=== PATIENT | female | born 1965 | race Caucasian/White ===

== ENCOUNTER → 2017-04-28 08:28 | Outpatient (CLI) | payer OTHER, SELFPAY ==
[2017-04-28 08:41] LABS: Basophils % 0.5 % (0.1-2.0); Eosinophils # 0.1 K/mm3 (0.0-0.4); Eosinophils % 1.8 % (0.1-12.0); Hemoglobin 13.1 g/dL (12.2-16.2); Lymphocytes % 44.1 K/mm3 (10-50); Mean Corpuscular HGB Conc 32.8 g/dL (31.8-35.4); Mean Corpuscular Hemoglobin 29.9 pg (27.0-31.2); Mean Corpuscular Volume 91.1 fl (81-99); Mean Platelet Volume 8.1 fl (7.4-10.4); Monocytes # 0.3 K/mm3 (0.1-1.0); Monocytes % 5.7 % (1.7-9.3); Neutrophils # 2.1 K/mm3 (1.8-7.8); Neutrophils % 47.9 % (37.0-80.0); Platelet Count 228 K/mm3 (142-424); Red Blood Count 4.39 M/mm3 (4.20-5.40); Red Cell Distribution Width 12.7 % (11.5-17.5); White Blood Count 4.4 K/mm3 (4.8-10.8)
[2017-04-28 09:02] LABS: Alanine Aminotransferase 21 U/L (12-78); Albumin Level 3.8 gm/dL (3.4-5.0); Alkaline Phosphatase 70 U/L (46-116); Anion Gap 10.2 mEq/L (5-15); Aspartate Amino Transferase 10 U/L (15-37); Bilirubin,Direct 0.1 mg/dL (0.0-0.2); Bilirubin,Total 0.5 mg/dL (0.2-1.0); Blood Urea Nitrogen 11 mg/dL (7-18); Carbon Dioxide 32 mmol/L (21.0-32.0); Chloride 104 mmol/L (98-107); Chol/HDL Ratio 3.6 (1-3.5); Cholesterol 225 mg/dL (140-200); Creatinine,Serum 0.88 mg/dL (0.55-1.02); Estimated Glomerular Filt Rate 67 ml/min (>60); Free T4 (Free Thyroxine) 0.81 ng/dl (0.76-1.46); GFR (African American) 81 ML/MIN (>60); Glucose 102 mg/dL (74-106); HDL Cholesterol 63 mg/dL (29-89); LDL Cholesterol 133 mg/dL (0-130); Potassium 4.2 mmoL/L (3.5-5.1); Sodium 142 mmol/L (136-145); Thyroid Stimulating Hormone 2.53 uIU/ml (0.358-3.740); Total Protein,Serum 7.3 gm/dL (6.4-8.2); Triglycerides 143 mg/dL (30-200); VLDL Cholesterol 29 mg/dL (0-40)
== END ==
PROVIDERS: Visit Provider Nurse Practitioner Family
DX: I11.9 Hypertensive heart disease without heart failure (principal); E78.5 Hyperlipidemia, unspecified; R00.2 Palpitations; R53.83 Other fatigue
CPT/HCPCS: 36415; 80048; 80061; 80076; 84439; 84443; 85025

== ENCOUNTER → 2017-05-30 14:09 | Outpatient (CLI) | payer OTHER, SELFPAY ==
--- NOTE | 2017-05-30 14:16 | MM_ITS ---
MM Dig screening mamm BI w/CAD CAD Screening COMPARISON: Digital mammograms 06/02/2016 and 02/04/2014 INDICATION: There is a history of breast cancer in patient's half sister diagnosed at age 40 TECHNIQUE: Standard CC and MLO images were obtained. R2 CAD reviewed. FINDINGS: Scattered fibroglandular densities are seen throughout both breasts. There is no new or suspicious lesion in either breast and no suspicious microcalcifications. Several small nodes are seen in each axilla as noted previously. IMPRESSION: Fibrofatty parenchyma with no suspicious lesion seen BI-RADS Category: 1 Negative RECOMMENDED FOLLOW-UP: 1YR - 1 YEAR FOLLOW-UP (A letter has been sent to the patient regarding results of the study.)
== END ==
PROVIDERS: PCP Nurse Practitioner; Visit Provider Obstetrics & Gynecology
DX: Z12.31 Encounter for screening mammogram for malignant neoplasm of breast (principal)
CPT/HCPCS: 77067

== ENCOUNTER → 2017-05-31 15:49 | Outpatient (POV) | payer OTHER, SELFPAY | PROVIDERS: PCP Nurse Practitioner; Visit Provider Dermatology | DX: Z00.00 Encounter for general adult medical examination without abnormal findings (principal) ==

== ENCOUNTER → 2017-10-04 15:06 | Outpatient (CLI) | payer OTHER, SELFPAY ==
--- NOTE | 2017-10-04 15:12 | XR_ITS ---
XR knee LT 3V HISTORY: ITS.REASON: LEFT KNEE PAIN ORDERING PHYSICIAN: Serenity Chino PATIENT AGE: 52 years COMPARISON: None FINDINGS: No fracture or dislocation. No lytic or blastic change. Normal mineralization. No significant arthritic changes evident. No other significant findings IMPRESSION: Negative Knee
== END ==
PROVIDERS: PCP Nurse Practitioner; Visit Provider Nurse Practitioner
DX: M25.562 Pain in left knee (principal)
CPT/HCPCS: 73562

== ENCOUNTER → 2017-11-27 08:00 | Outpatient (CLI) | payer OTHER, SELFPAY ==
--- NOTE | 2017-11-27 08:07 | CA_ITS ---
PROCEDURE: 2-D M-mode and color Doppler study INDICATIONS FOR THE TEST: Chest pain+ COPD Heart Murmur+ Tobacco Smoking Palpitations+ Fatigue Syncope Edema Hypertension+Diabetes Mellitus Rheumatic Fever SOB+[place] Obesity Hyperlipidemia+ Family History HD Additional History Dizziness PATIENT INFORMATION HEIGHT: 63 WEIGHT: 135 GENDER: Female B/P: 94/72 2-D/M-MODE INTERPRETATION: 2-D MEASUREMENTS OBSERVED VALUES IN CMS Right Ventricular Dimension (RVDd) 2.0 Interventricular Septum (Thickness)(IVsd) 0.9 Left Ventricular Internal Dimensions(LVIDd) 4.6 Left Ventricular Posterior Wall (Thickness)(LVPWd) 0.8 Aortic Root 2.4 Aortic Cusp Separation 1.8 Left Atrial Dimensions (LAD) 2.9 2D 1. Left atrium is normal size, left ventricle is normal size, there is no concentric left ventricular hypertrophy, visually estimated ejection fraction of 55% with no regional wall motion abnormality. 2. The right atrium and right ventricle are normal size and contractility. 3. The aortic valve is minimally thickened and fibrosed. 4. The mitral and tricuspid valvular grossly normal. 5. The pulmonic valve is poorly visualized. 6. No significant pericardial effusion. DOPPLER INTERROGATION: Doppler interrogation of the aortic, mitral and tricuspid valvular presence of mild mitral and tricuspid regurgitation, tricuspid regurgitation jet velocity is insufficient for calculation of the right ventricular systolic pressure, diastolic parameters are within normal range. CONCLUSION: 1. Normal left ventricular size, preserved left ventricular systolic function, visually estimated ejection fraction of 55% with no regional wall motion abnormality, diastolic parameters are within normal range. 2. Mild mitral and tricuspid regurgitation 3. No significant pericardial effusion noted.
== END ==
PROVIDERS: PCP Nurse Practitioner; Visit Provider Physician Assistant
DX: R01.1 Cardiac murmur, unspecified (principal); R00.2 Palpitations; R06.00 Dyspnea, unspecified
CPT/HCPCS: 93306

== ENCOUNTER → 2017-11-27 10:56 | Outpatient (POV) | payer OTHER, SELFPAY | PROVIDERS: PCP Nurse Practitioner; Visit Provider Otolaryngology | DX: Z00.00 Encounter for general adult medical examination without abnormal findings (principal) ==

== ENCOUNTER → 2018-03-05 14:20 | Outpatient (CLI) | payer OTHER, SELFPAY ==
--- NOTE | 2018-03-05 14:27 | XR_ITS ---
XR finger RT min 2V CLINICAL INDICATION: Right thumb pain ITS.REASON THUMB INJURY ORDERING PHYSICIAN: Diamante White PATIENT AGE: 53 years Comparison: None FINDINGS: No bony or joint abnormality IMPRESSION: Negative right thumb
== END ==
PROVIDERS: PCP Nurse Practitioner Family; Visit Provider Nurse Practitioner Family
DX: S69.91XA Unspecified injury of right wrist, hand and finger(s), initial encounter (principal)
CPT/HCPCS: 73140

== ENCOUNTER → 2018-06-04 10:10 | Outpatient (CLI) | payer OTHER, SELFPAY ==
--- NOTE | 2018-06-04 10:11 | XR_ITS ---
XR DEXA axial skeleton HISTORY: ITS.REASON: screening ORDERING PHYSICIAN: Terell Scott MD PATIENT AGE: 53 years COMPARISON: None FINDINGS: The BMD measured at the Right femoral neck is 0.768 g/cm squared with a T score of -1.9. This is considered Osteopenic according to the World Health Organization criteria. Fracture risk is Moderate. Treatment is advised. IMPRESSION: Osteopenia with moderate fracture risk. Treatment is advised. Suggest follow-up exam May 2020
--- NOTE | 2018-06-04 10:11 | MM_ITS ---
MM Dig screening mamm BI w/CAD ORDERING PHYSICIAN : Terell cSott MD PATIENT AGE: 53 years GENDER: Female COMPARISON: May 20172016, January. INDICATION: ITS.Routine screening mammogram. No hormones. No new complaints listed Family history. Half sister with breast cancer in her 40s. TECHNIQUE: Standard CC and MLO images were obtained. R2 CAD reviewed. FINDINGS: Lower density breast with minimal residual fibroglandular elements bilaterally. Mild to moderate fatty replacement throughout with Progressive fatty replacement compared back to 2014. No significant new findings today when compared to previous study. No dominant or suspicious mass. No suspicious calcifications. CAD computer review highlights no areas of concern either. . IMPRESSION: ...... Stable bilateral mammogram. No new areas of concern Lower density breast. Routine Bilateral follow-up one year recommended BI-RADS Category: 1 Negative RECOMMENDED FOLLOW-UP: 1YR 1 YEAR FOLLOW-UP (A letter has been sent to the patient regarding results of the study.)
== END ==
PROVIDERS: PCP Nurse Practitioner; Visit Provider Obstetrics & Gynecology
DX: Z78.0 Asymptomatic menopausal state (principal); Z12.31 Encounter for screening mammogram for malignant neoplasm of breast; Z13.820 Encounter for screening for osteoporosis
CPT/HCPCS: 77067; 77080

== ENCOUNTER → 2018-07-09 13:07 | Outpatient (POV) | payer OTHER, SELFPAY | PROVIDERS: Visit Provider Dermatology | DX: Z00.00 Encounter for general adult medical examination without abnormal findings (principal) ==

== ENCOUNTER → 2018-08-20 10:22 | Outpatient (POV) | payer OTHER, SELFPAY | PROVIDERS: Visit Provider Dermatology | DX: Z00.00 Encounter for general adult medical examination without abnormal findings (principal) ==

== ENCOUNTER → 2018-10-08 10:02 | Outpatient (CLI) | payer OTHER, SELFPAY ==
--- NOTE | 2018-10-08 10:08 | XR_ITS ---
PROCEDURE: XR CERVICAL SPINE 5V CLINICAL INDICATION: NECK PAIN COMPARISON: No exams were available for comparison FINDINGS: Normal alignment. Straightening of cervical lordosis. There is degenerate disc disease from C3 to C6 most severe at C5-C6. No fracture or dislocation. No lytic or blastic change. No significant foraminal narrowing.. Nuchal ligament calcification noted posterior to C5. IMPRESSION: Cervical spondylosis with degenerative disc disease and straightening of cervical lordosis Dictated by: Francesco Donis MD 10/09/2018 06:06 Signed by: <Electronically signed by Francesco Donis MD in [place]> 10/09/2018 06:06
== END ==
PROVIDERS: PCP Family Medicine; Visit Provider Family Medicine
DX: M54.2 Cervicalgia (principal)
CPT/HCPCS: 72050

== ENCOUNTER → 2018-11-19 14:13 | Outpatient (POV) | payer OTHER, SELFPAY | PROVIDERS: Visit Provider Dermatology | DX: Z00.00 Encounter for general adult medical examination without abnormal findings (principal) ==

== ENCOUNTER → 2018-12-10 10:22 | Outpatient (CLI) | payer OTHER, SELFPAY ==
--- NOTE | 2018-12-10 17:21 | XR_ITS ---
PROCEDURE: XR LUMBAR SPINE MIN 4V CLINICAL INDICATION: PAIN COMPARISON: No exams were available for comparison FINDINGS: No fracture or dislocation. There is minimal endplate spurring at L3 and L4. The disc spaces are well preserved. No lytic or blastic change. SI joints are unremarkable. Nonspecific pelvic calcifications are noted. IMPRESSION: Mild degenerative change, no acute finding There is a 3 mm calcific density inferior to the right SI joint which could be vascular. A ureteral stone could have a similar appearance. CT may be of further value if clinically warranted Dictated by: Francesco Donis MD 12/10/2018 18:02 Electronically signed by Francesco Donis MD in [place] 12/10/2018 18:02
--- NOTE | 2018-12-10 17:21 | XR_ITS ---
PROCEDURE: XR HIP RT 2-3V W/PELVIS CLINICAL INDICATION: PAIN COMPARISON: BONE3 BONE DENSITOMETRY(HIP:LT SPINE from 06/02/2016 FINDINGS: No fracture or dislocation is evident. No significant degenerative change. No lytic or blastic change. Unremarkable soft tissues. 3 mm calcific density inferior to the right SI joint which could be vascular or due to ureteral stone. IMPRESSION: 1. Negative right hip. 2. Possible right ureteral stone versus vascular calcification Dictated by: Francesco Donis MD 12/10/2018 18:03 Electronically signed by Francesco Donis MD in [place] 12/10/2018 18:03
== END ==
PROVIDERS: PCP Nurse Practitioner Family; Visit Provider Nurse Practitioner Family
DX: M54.41 Lumbago with sciatica, right side (principal); M25.551 Pain in right hip
CPT/HCPCS: 72110; 73502

== ENCOUNTER → 2019-03-04 15:48 | Outpatient (POV) | payer OTHER, SELFPAY | PROVIDERS: Visit Provider Dermatology | DX: Z00.00 Encounter for general adult medical examination without abnormal findings (principal) ==

== ENCOUNTER → 2019-08-22 09:00 | Outpatient (CLI) | payer OTHER, SELFPAY ==
--- NOTE | 2019-08-22 09:00 | MM_ITS ---
PROCEDURE: MM DIG SCREENING MAMM BI W/CAD DIGITAL BREAST TOMOSYNTHESIS INCLUDED Patient Age:54Y CLINICAL INDICATION: Routine Screening Mammogram 54-year-old no hormones no new complaints. Family history. Half sister with breast cancer COMPARISON: [facility] DIG MAMM-SCREEN PHILIP from 09/17/2013 [facility] DIG MAMM-DX PHILIP from 02/04/2014 [facility] DIG MAMM-SCREEN PHILIP W/CAD from 06/02/2016 [facility] MM Dig screening mamm BI w/CAD from 05/30/2017 [facility] MM Dig screening mamm BI w/CAD from 06/04/2018 TECHNIQUE: Standard CC and MLO images were obtained. R2 CAD reviewed. Bilateral digital breast tomosynthesis included. FINDINGS: [id number] residual fibroglandular elements with no new areas of significant concern. But no suspicious calcifications either breast but no new dominant or suspicious mass either breast. CAD highlights no areas of concern either nor does tomosynthesis evaluation . Right breast: No new areas of significant concern. Areas of very minor asymmetric density on the MLO view are seen in 2013 and dissipate on the tomosynthesis view. Left breast:. Unremarkable no new findings of concern. Follow-up bilateral mammogram 1 year recommended Bilateral follow-up 1 year recommended IMPRESSION: Stable bilateral mammogram No new areas of concern either breast Bilateral follow-up 1 year recommended BI-RAD Category: 1 Negative FOLLOW-UP: 1YR 1 Year Follow-up (A letter has been sent to the patient regarding results of the study.) Dictated by: Everardo Lord MD 08/26/2019 14:03 Electronically signed by Everardo Lord MD in [place] 08/26/2019 14:03
== END ==
PROVIDERS: PCP Nurse Practitioner; Visit Provider Obstetrics & Gynecology
DX: Z12.31 Encounter for screening mammogram for malignant neoplasm of breast (principal)
CPT/HCPCS: 77063; 77067

== ENCOUNTER → 2019-09-05 10:08 | Outpatient (CLI) | payer OTHER, SELFPAY ==
[2019-09-05 10:29] LABS: Basophils % 0.5 % (0.1-2.0); Hematocrit 40.8 % (37.0-47.0); Hemoglobin 14.2 g/dL (12.2-16.2); Lymphocytes % 45.6 % (10-50); Mean Corpuscular HGB Conc 34.8 g/dL (31.8-35.4); Mean Corpuscular Hemoglobin 30.9 pg (27.0-31.2); Mean Corpuscular Volume 88.8 fl (81-99); Mean Platelet Volume 8.3 fl (7.4-10.4); Monocytes # 0.2 K/mm3 (0.1-1.0); Monocytes % 4.3 % (1.7-9.3); Neutrophils # 2.1 K/mm3 (1.8-7.8); Neutrophils % 48.6 % (37.0-80.0); Platelet Count 210 K/mm3 (142-424); Red Cell Distribution Width 13.2 % (11.5-17.5); White Blood Count 4.4 K/mm3 (4.8-10.8)
[2019-09-05 11:35] LABS: Alanine Aminotransferase 13 U/L (12-78); Albumin Level 4.5 g/dl (3.5-5.0); Albumin/Globulin Ratio 1.6 (1.1-1.8); Alkaline Phosphatase 87 U/L (38-126); Anion Gap 12.1 mEq/L (5-15); Aspartate Amino Transferase 26 U/L (14-36); Bilirubin,Total 0.5 mg/dl (0.2-1.3); Blood Urea Nitrogen 11 mg/dl (7-17); Calcium 9.8 mg/dl (8.4-10.2); Carbon Dioxide 29 mmol/L (22.0-30.0); Chloride 100 mmol/L (98-107); Estimated Glomerular Filt Rate 87 ml/min (>60); GFR (African American) 105 ML/MIN (>60); Globulin 2.8 g/dL (1.3-3.2); Glucose 96 mg/dl (74-100); Potassium 4.1 mmoL/L (3.5-5.1); Sodium 137 mmol/L (136-145); Total Protein,Serum 7.3 g/dl (6.3-8.2)
[2019-09-05 12:06] LABS: Thyroid Stimulating Hormone 2.66 uIU/mL (0.465-4.68)
== END ==
PROVIDERS: Visit Provider Obstetrics & Gynecology
DX: Z01.419 Encounter for gynecological examination (general) (routine) without abnormal findings (principal)
CPT/HCPCS: 36415; 80053; 84443; 85025

== ENCOUNTER → 2019-09-09 16:31 | Outpatient (POV) | payer OTHER, SELFPAY | PROVIDERS: PCP Nurse Practitioner; Visit Provider Dermatology | DX: Z00.00 Encounter for general adult medical examination without abnormal findings (principal) ==

== ENCOUNTER → 2019-12-03 11:43 | Outpatient (CLI) | payer OTHER, SELFPAY ==
[2019-12-03 12:59] LABS: Coronavirus 19 IgG Antibody Negative (Negative); Coronavirus 19 IgM Antibody Negative (Negative)
== END ==
PROVIDERS: Visit Provider Family Medicine
DX: Z03.818 Encounter for observation for suspected exposure to other biological agents ruled out (principal)
CPT/HCPCS: 36415; 86328

== ENCOUNTER → 2020-04-27 16:10 | Outpatient (POV) | payer OTHER, SELFPAY | PROVIDERS: Visit Provider Dermatology | DX: Z00.00 Encounter for general adult medical examination without abnormal findings (principal) ==

== ENCOUNTER → 2020-04-30 16:23 | Outpatient (CLI) | payer OTHER, SELFPAY ==
--- NOTE | 2020-04-30 16:41 | XR_ITS ---
PROCEDURE: XR CHEST 2V CLINICAL HISTORY: COUGH COMPARISON: CR CXR1 CHEST-PORTABLE from 11/16/2012 CT CTAC CTA-CHEST from 05/11/2015 FINDINGS: The cardiomediastinal silhouette and pulmonary vascularity are within normal limits. The lungs are clear without infiltrates, suspicious nodules, or pleural effusions. No acute bony abnormalities. IMPRESSION: No acute findings. Dictated by: Francesco Donis MD 05/01/2020 05:48 Francesco Donis MD in [place] 05/01/2020 05:48
[2020-04-30 16:49] LABS: Basophils % 0.6 % (0.1-2.0); Eosinophils # 0.1 K/mm3 (0.0-0.4); Eosinophils % 1.7 % (0.1-12.0); Hematocrit 40.2 % (37.0-47.0); Hemoglobin 13.4 g/dL (12.2-16.2); Lymphocytes # 2.4 K/mm3 (0.7-4.5); Lymphocytes % 48.1 % (10-50); Mean Corpuscular HGB Conc 33.3 g/dL (31.8-35.4); Mean Corpuscular Hemoglobin 29.8 pg (27.0-31.2); Mean Corpuscular Volume 89.4 fl (81-99); Mean Platelet Volume 8.1 fl (7.4-10.4); Monocytes # 0.3 K/mm3 (0.1-1.0); Monocytes % 5.4 % (1.7-9.3); Neutrophils # 2.2 K/mm3 (1.8-7.8); Neutrophils % 44.2 % (37.0-80.0); Platelet Count 224 K/mm3 (142-424); Red Cell Distribution Width 13.6 % (11.5-17.5); White Blood Count 4.9 K/mm3 (4.8-10.8)
[2020-04-30 17:33] LABS: Alanine Aminotransferase 16 U/L (12-78); Albumin Level 4.6 g/dl (3.5-5.0); Albumin/Globulin Ratio 1.6 (1.1-1.8); Alkaline Phosphatase 71 U/L (38-126); Anion Gap 9.3 mEq/L (5-15); Aspartate Amino Transferase 25 U/L (14-36); Bilirubin,Total 0.3 mg/dl (0.2-1.3); Blood Urea Nitrogen 13 mg/dl (7-17); Calcium 10.2 mg/dl (8.4-10.2); Carbon Dioxide 31 mmol/L (22.0-30.0); Chloride 103 mmol/L (98-107); Chol/HDL Ratio 4.5 (1-3.5); Cholesterol 260 mg/dl (140-200); Estimated Glomerular Filt Rate 86 ml/min (>60); GFR (African American) 104 ML/MIN (>60); Globulin 2.9 g/dL (1.3-3.2); Glucose 111 mg/dl (74-100); HDL Cholesterol 58 mg/dl (40-60); Potassium 4.3 mmoL/L (3.5-5.1); Sodium 139 mmol/L (136-145); Total Protein,Serum 7.5 g/dl (6.3-8.2); Triglycerides 275 mg/dl (30-150); VLDL Cholesterol 55 mg/dL (0-40)
[2020-04-30 17:44] LABS: Direct LDL Cholesterol 135.93 mg/dL (100-129)
[2020-04-30 18:04] LABS: Thyroid Stimulating Hormone 2.89 uIU/mL (0.465-4.68)
== END ==
PROVIDERS: PCP Nurse Practitioner Family; Visit Provider Nurse Practitioner Family
DX: R00.2 Palpitations (principal); R05 Cough; K92.1 Melena
CPT/HCPCS: 36415; 71046; 80053; 80061; 84443; 85025

== ENCOUNTER → 2020-06-29 08:02 | Outpatient (CLI) | payer OTHER, SELFPAY ==
--- NOTE | 2020-06-29 08:27 | US_ITS ---
PROCEDURE: US ABDOMEN LIMITED CLINICAL INDICATION: RUQ PAIN COMPARISON: No exams were available for comparison FINDINGS: PANCREAS: Unremarkable. No obvious mass or abnormal fluid collection. No ductal dilatation LIVER: No focal liver lesions demonstrated. Homogeneous echogenicity. No intrahepatic biliary ductal dilatation evident. There is appropriate direction of blood flow within a non dilated portal vein RIGHT KIDNEY: Unremarkable. Normal size and echogenicity. No hydronephrosis GALLBLADDER: No gallstones, gallbladder wall thickening, pericholecystic fluid, or biliary dilatation. IMPRESSION: Unremarkable limited abdominal ultrasound as detailed above disc Dictated by: Francesco Donis MD 06/29/2020 16:18 Francesco Donis MD in [place] 06/29/2020 16:18
[2020-06-29 09:16] LABS: Basophils % 0.6 % (0.1-2.0); Eosinophils # 0.1 K/mm3 (0.0-0.4); Eosinophils % 1.3 % (0.1-12.0); Hematocrit 38.8 % (37.0-47.0); Hemoglobin 12.9 g/dL (12.2-16.2); Lymphocytes # 1.9 K/mm3 (0.7-4.5); Lymphocytes % 47.6 % (10-50); Mean Corpuscular HGB Conc 33.2 g/dL (31.8-35.4); Mean Corpuscular Hemoglobin 29.9 pg (27.0-31.2); Mean Platelet Volume 8.2 fl (7.4-10.4); Monocytes # 0.2 K/mm3 (0.1-1.0); Monocytes % 5.2 % (1.7-9.3); Neutrophils # 1.8 K/mm3 (1.8-7.8); Neutrophils % 45.3 % (37.0-80.0); Platelet Count 217 K/mm3 (142-424); Red Blood Count 4.31 M/mm3 (4.20-5.40); White Blood Count 4.1 K/mm3 (4.8-10.8)
[2020-06-29 09:44] LABS: Chloride 105 mmol/L (98-107); Sodium 141 mmol/L (136-145)
[2020-06-29 09:46] LABS: Alanine Aminotransferase 16 U/L (12-78); Aspartate Amino Transferase 25 U/L (14-36); Blood Urea Nitrogen 8 mg/dl (7-17); Estimated Glomerular Filt Rate 103 ml/min (>60); GFR (African American) 125 ML/MIN (>60)
[2020-06-29 09:47] LABS: Albumin Level 4.3 g/dl (3.5-5.0); Albumin/Globulin Ratio 1.7 (1.1-1.8); Alkaline Phosphatase 67 U/L (38-126); Bilirubin,Total 0.4 mg/dl (0.2-1.3); Calcium 9.6 mg/dl (8.4-10.2); Carbon Dioxide 29 mmol/L (22.0-30.0); Globulin 2.6 g/dL (1.3-3.2); Glucose 101 mg/dl (74-100); Total Protein,Serum 6.9 g/dl (6.3-8.2)
[2020-06-29 10:20] LABS: Ferritin 111 ng/ml (11.1-264)
== END ==
PROVIDERS: PCP Nurse Practitioner Family; Visit Provider Nurse Practitioner Family
DX: R10.11 Right upper quadrant pain (principal); K92.1 Melena
CPT/HCPCS: 36415; 76705; 80053; 82728; 85025

== ENCOUNTER → 2020-08-07 10:35 | Outpatient (CLI) | payer OTHER, SELFPAY | PROVIDERS: Visit Provider Internal Medicine Gastroenterology | DX: Z01.812 Encounter for preprocedural laboratory examination (principal); Z11.52 Encounter for screening for COVID-19 | CPT/HCPCS: U0003 ==

== ENCOUNTER 2020-08-09 09:55 | Day surgery (SDC) | payer OTHER, SELFPAY ==
[2020-08-03 12:47] VITALS: BMI 23.1
[2020-08-09 10:42] VITALS: BP 131/73; PULSE 83; RESP 18; TEMP 36.9; O2SAT 100
--- NOTE | 2020-08-09 11:36 | P.PN_ITS ---
[facility] Anesthesia Checklist - Patient Identification Patient Identification: Arm Band - Structural Data Admitted From: Home Planned Operative Procedure/s: colonoscopy Consent for Planned Operative Procedure(s) Verified: Yes Verified Documents: Surgical Consent, History and Physical - NPO Status Verified Time NPO: 00:00 - Additional verifications Anesthesia Reactions: No - Airway Assessment C-Spine Mobility Assessed: Yes (mp2) TMJ Mobility Assessed: Yes Dentition: Good Dentition - Neurological Assessment Level of Consciousness: Awake, Alert - Anesthesia Plan Anesthesia Risk discussed: Yes Anesthesia Plan: Verified ASA Class: II Anesthesia Type: MAC [facility] History I have reviewed the patient's past medical history: Yes Medical History: Reports:: Cancer (basal cell), Heart Murmur, Hyperlipidemia, Palpitations, Pulmonary Embolism Denies:: Diabetes Mellitus Type 1, Diabetes Mellitus Type 2, Internal Pacemaker, MRSA, Seizures *Have you ever received a pneumonia vaccine?: No *Have you received a flu vaccine this season?: Yes Anesthesia experience/problems:: nac Other Surgeries: Yes: , Other. No: Pacemaker Amputation: No Fractures: No - *Social History Last grade of school completed: GED Smoking Status: Never smoker Alcohol Intake: never Alcohol Intake Frequency:: other Substance Use Type: denies use *Occupational Status:: employed Housing: house *Travel in the last 8 weeks: None Family Hx:: Cancer, Diabetes, Heart Attack [employer] history: No [employer] history
--- NOTE | 2020-08-09 11:47 | HMH.PROC ---
[facility] Procedure Note Procedure Note:: Upper Endoscopy Procedure Report: Esophagogastroduodenoscopy with cold biopsies and TTS balloon dilation Endoscopost: Seth Bobby II, MD Referring Physician: JAN Crespo Date of Procedure: August 09, 2020 Equipment: Olympus GIF 190 standard upper endoscope Sedation: MAC sedation Indications: Mrs. Rivers is a 55-year-old female who is here for diagnostic upper endoscopy and colonoscopy. She does have some chronic intermittent heartburn. She takes omeprazole when necessary. She reports no reflux. The patient has had some dysphagia and globus sensation. She reports some postprandial bloating and intermittent belching. She has some intermittent dyspepsia. She also formerly had constipation but now is more regular. She has had frequent rectal bleeding from the end of March 2020 to the end of May 2020. Now this is intermittent. Procedure: Prior to the procedure, a history and physical exam was performed, and patient's medications and allergies were reviewed. The risks, benefits and alternatives of the sedation and procedure were discussed with the patient. All questions were answered and informed consent was obtained. The patient was brought to the procedure room. Patient identification and proposed procedure were verified by the physician and the nurse. The patient was placed in a left lateral decubitus position and the scope was passed under direct vision. Throughout the procedure, the patient's blood pressure, pulse, and oxygen saturations were monitored continuously. The upper GI endoscopy was accomplished without difficulty. The patient tolerated the procedure well. Findings: The scope was passed directly into the upper esophagus and advanced to the third portion of the duodenum. The post bulbar duodenum and duodenal bulb were normal with normal mucosa and conniventes. The scope was withdrawn through a normal duodenal bulb and pylorus into the stomach. There was some bile reflux with mild linear reactive gastropathy of the antrum. The remainder of the body and fundus of the stomach were grossly normal. Upon retroflexion there was no hiatal hernia. 2 biopsies were taken in the antrum and along the lesser curvature for histology to rule out gastritis and/or H pylori. The scope was then withdrawn into the esophagus. There was a serrated Z-line. There was no evidence of reflux esophagitis, Carrillo's or Schatzki's ring. Biopsies were taken from the GE junction. There were tertiary contractions and evidence of mild esophageal dysmotility. The entire esophagus was dilated to 60 Lebanese/20 mm with a TTS hydrostatic balloon. There was some mild spasm or increased resting tone of the cricopharyngeus. The remainder of the esophageal mucosa was normal. Impression: 1. 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 Nonerosive GERD with mild esophageal dysmotility 3. Mild linear reactive gastropathy with bile reflux Plan: I will follow-up the biopsies. The patient does have some functional dyspepsia and functional GERD with esophageal dysmotility. We will discuss additional dietary measures and treatment options. I will proceed with diagnostic colonoscopy.
--- NOTE | 2020-08-09 12:07 | P.PCN_ITS ---
[facility] Procedure Note Procedure Note:: Colonoscopy Procedure Report: Colonoscopy with monopolar ablation/coagulation of internal hemorrhoids Endoscopist: Seth Bobby II, MD Referring physician: JAN Crespo Date of Procedure: August 09, 2020 Equipment: Olympus 190 variable stiffness pediatric colonoscope Sedation: MAC sedation Indication: Mrs. Rivers is a 55-year-old female who is here for diagnostic colonoscopy secondary to frequent rectal bleeding. She had this daily from the end of March 2020 to the end of May 2020 and this primarily only occurred with or after her bowel movements. Now, she does get the bleeding off and on but less frequently. The patient does report some postprandial bloating. She does state that she formerly had constipation but now is regular. She had a colonoscopy in 2011 that was normal. Her last Cologuard in the last 1 to 2 years was normal. The patient reports no weight loss or family history of colon cancer. She did have a thrombosed external hemorrhoid in the . Procedure: Prior to the procedure, a history and physical exam was performed, and patient's medications and allergies were reviewed. The risks, benefits and alternatives of the sedation and procedure were discussed with the patient. All questions were answered and informed consent was obtained. The patient was brought to the procedure room. Patient identification and proposed procedure were verified by the physician and the nurse. The patient was placed in a left lateral decubitus position and the scope was passed under direct vision. Throughout the procedure, the patient's blood pressure, pulse, and oxygen saturations were monitored continuously. The colonoscopy was accomplished without difficulty. The patient tolerated the procedure well. Findings: On digital rectal examination there was normal rectal tone. There were no external hemorrhoids. There was an anterior tag with healed fissure. The colonoscope was introduced through the anal canal to the rectum and advanced to the cecum. The ileocecal valve and appendiceal orifice were identified. The scope was advanced a short distance into the ileum which appeared grossly normal. The scope was then withdrawn into the colon. The cecum, ascending and transverse colon and mucosa were grossly normal. There were mildly scattered diverticuli throughout the descending and sigmoid colon (LEFT colon). The rectum itself was normal. Upon retroflexion within the rectum there were grade 1 internal hemorrhoids. These hemorrhoids were ablated (3 columns) using monopolar ablation/coagulation to destruction. The preparation was excellent throughout with [place] Preparation Score of 9. The cecal time was 12 minutes. Impression: 1. Mild left-sided diverticulosis 2. Grade 1 internal hemorrhoids status post monopolar ablation/coagulation Plan: I would encourage bulk fiber supplementation on a long-term daily maintenance basis. The patient will not require surveillance colonoscopy again for 10 years by ACS guidelines.
[2020-08-09 12:08] VITALS: BP 108/69; PULSE 75; RESP 12; TEMP 36.4; O2SAT 99
[2020-08-09 12:18] VITALS: BP 108/69; PULSE 82; RESP 16; O2SAT 100
[2020-08-09 12:28] VITALS: BP 116/67; PULSE 76; RESP 16; O2SAT 100
[2020-08-09 12:38] VITALS: BP 120/77; PULSE 68; RESP 16; TEMP 36.4; O2SAT 100
== END 2020-08-09 12:42 | disposition home or self-care (01) ==
LOC: OUTP 09:57
PROVIDERS: PCP Nurse Practitioner Family; Visit Provider Internal Medicine Gastroenterology
PROC: 0DJ08ZZ Inspection of Upper Intestinal Tract, Via Natural or Artificial Opening Endoscopic (ICD-10-PCS; CPT 43235; principal; 2020-08-09 11:00)
DX: K57.30 Diverticulosis of large intestine without perforation or abscess without bleeding (principal); K64.0 First degree hemorrhoids; R01.1 Cardiac murmur, unspecified; R00.2 Palpitations; Z85.828 Personal history of other malignant neoplasm of skin; Z86.711 Personal history of pulmonary embolism; Z80.9 Family history of malignant neoplasm, unspecified; Z83.3 Family history of diabetes mellitus; Z82.3 Family history of stroke; Z88.0 Allergy status to penicillin; Z88.2 Allergy status to sulfonamides
CPT/HCPCS: 45378; 46930

== ENCOUNTER → 2020-11-02 16:03 | Outpatient (POV) | payer OTHER, SELFPAY | PROVIDERS: Visit Provider Dermatology | DX: Z00.00 Encounter for general adult medical examination without abnormal findings (principal) ==

== ENCOUNTER → 2020-11-17 13:26 | Outpatient (CLI) | payer OTHER, SELFPAY ==
--- NOTE | 2020-11-17 13:26 | MM_ITS ---
PROCEDURE: MM DIG SCREENING MAMM BI W/CAD Digital Breast Tomosynthesis Included CLINICAL INDICATION: Screening mammogram There is a history of breast cancer in the patient's half sister. COMPARISON: [facility] MM Dig screening mamm BI w/CAD from 05/30/2017 MG [facility] MM Dig screening mamm BI w/CAD from 06/04/2018 MG MM DIG SCREENING MAMM BI W/CAD from 08/22/2019 TECHNIQUE: Standard CC and MLO images and 3D Tomosynthesis was obtained. R2 CAD reviewed. FINDINGS: Mild scattered fibroglandular densities are seen throughout both breast on a background primarily fatty breast parenchyma. There are no CAD markings. There is no new or suspicious lesion in either breast and no suspicious microcalcifications. IMPRESSION: Fibrofatty parenchyma with no suspicious lesions seen BI-RAD Category: 1 Negative FOLLOW-UP: 1YR 1 Year Follow-up (A letter has been sent to the patient regarding results of the study.) Dictated by: Dr. Johnson Goncalves MD 12/02/2020 12:44 Dr. Johnson Goncalves MD in [place] 12/02/2020 12:44
--- NOTE | 2020-11-17 14:51 | XR_ITS ---
PROCEDURE: XR LUMBAR SPINE MIN 4V CLINICAL INDICATION: LOW BACK PAIN COMPARISON: CR XR LUMBAR SPINE MIN 4V from 12/10/2018 FINDINGS: No fracture or dislocation. No lytic or blastic change. There is normal mineralization. Minimal lumbar curvature convex left. No fracture or dislocation. No lytic or blastic change. Other findings:None. IMPRESSION: Minimal leftward lumbar curvature otherwise negative Dictated by: Francesco Donis MD 11/17/2020 16:08 Francesco Donis MD in [place] 11/17/2020 16:08
== END ==
PROVIDERS: PCP Nurse Practitioner Family; Visit Provider Obstetrics & Gynecology
DX: Z12.31 Encounter for screening mammogram for malignant neoplasm of breast (principal); M54.5 Low back pain
CPT/HCPCS: 72110; 77063; 77067

== ENCOUNTER 2020-11-24 12:46 | Outpatient (RCR) | payer OTHER, SELFPAY ==
--- NOTE | 2020-11-24 13:51 | HMH.PTOPEV ---
PT Outpatient Evaluation Rehab PT Outpatient Evaluation Start: 11/24/20 13:38 Freq: Status: Active Protocol: Document 11/24/20 13:38 NEEL (Rec: 11/24/20 13:51 NEEL [id number]) Electronically Signed By Macario Yao, PT 11/24/20 13:38 Outpatient Therapy Subjective History Subjective History Pt reports acute onset LBP beginning upon waking on . Pt reports no injury or change in activity leading up to this event. Pt reports R>L sided LBP with radicular s/s into right hip,groin, thigh areas. Pt reports recent lumbar xray revealed ' arthritis'. 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 Chief Complaint Pain,Stiff,Paresthesia, Weakness Symptom Type Ache,Sharp,Dull,Stabbing, Burning Symptoms Relieved By Rest/Positioning,Heat,OTC Meds ,Prescription Meds Symptoms Aggravated By Bending/Stooping,Physical Activity,Twisting,Lifting Prior Functional Limitations None Current Functional Limitations Lifting,Housework,Sleeping, Bending/Stooping Symptom Description Constant but Variable Level of pain today (0-10) 4 Pain scale - at its best (0-10) 3 Pain scale - at its worst (0-10) 7 Lumbopelvic Eval Posture Thoracic Spine Posture Standing Position Neutral Lumbar Spine Posture Standing Position Neutral Assistive device Assistive Devices None / NA Gait Observation General Gait Pattern Observation Antalgic Gait Palapation tenderness left lumbar spinal tenderness Yes: 2/4 paraspinal tenderness Yes: 2/4 buttock tenderness Yes: 2/4 Lumbar/Sacral Palpation Findings Tenderness,Trigger Point, Muscle Guarding right lumbar spinal tenderness Yes: 3/4 paraspinal tenderness Yes: 3/4 buttock tenderness Yes: 3/4 Lumbar/Sacral Palpation Findings Tenderness,Trigger Point, Muscle Guarding Accessory Movement L-spine Vertebrae Accessory Movements [employer] [place] that Elicit Symptoms L2 bilateral L3 bilateral L4 bilateral L5 bilateral S1 bilateral Range of Motion Lumbar Spine Active Flexion Range of 0-50 Motion (degrees)
== END 2020-11-24 12:50 | disposition home or self-care (01) ==
LOC: PT 12:46
PROVIDERS: PCP Nurse Practitioner Family; Visit Provider Internal Medicine Adolescent Medicine
DX: M54.5 Low back pain (principal)
CPT/HCPCS: 97163

== ENCOUNTER → 2020-11-24 13:45 | Outpatient (CLI) | payer OTHER, SELFPAY | PROVIDERS: PCP Nurse Practitioner Family; Visit Provider Nurse Practitioner Family | DX: R51.9 Headache, unspecified (principal); R53.83 Other fatigue; G47.33 Obstructive sleep apnea (adult) (pediatric) | CPT/HCPCS: 95806 ==

== ENCOUNTER → 2021-05-10 13:02 | Outpatient (POV) | payer OTHER, SELFPAY | PROVIDERS: Visit Provider Dermatology | DX: Z00.00 Encounter for general adult medical examination without abnormal findings (principal) ==

== ENCOUNTER → 2021-07-26 15:00 | Outpatient (POV) | payer OTHER, SELFPAY | PROVIDERS: Visit Provider Dermatology | DX: Z00.00 Encounter for general adult medical examination without abnormal findings (principal) ==

== ENCOUNTER → 2021-09-27 12:57 | Outpatient (CLI) | payer OTHER, SELFPAY ==
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
== END ==
PROVIDERS: PCP Nurse Practitioner Family; Visit Provider Nurse Practitioner Family
DX: M54.2 Cervicalgia (principal); R20.2 Paresthesia of skin; V89.2XXA Person injured in unspecified motor-vehicle accident, traffic, initial encounter
CPT/HCPCS: 72141; 76376

== ENCOUNTER → 2021-11-22 11:04 | Outpatient (CLI) | payer OTHER, SELFPAY ==
--- NOTE | 2021-11-22 11:10 | MM_ITS ---
PROCEDURE INFORMATION: Exam: MG Bilateral Screening 3D Mammography Exam date and time: 11/22/2021 11:01 AM Age: 56 years old Clinical indication: Screening. Have sister and maternal cousin had breast cancer. TECHNIQUE: Imaging protocol: Bilateral Screening tomosynthesis and 2D mammography including computer-aided detection (CAD) when performed. COMPARISON: 1. MG MM DIG SCREENING MAMM BI W/CAD 11/17/2020 1:31 PM 2. MG MM DIG SCREENING MAMM BI W/CAD 08/22/2019 9:06 AM 3. MG [facility] MM Dig screening mamm BI w/CAD 06/04/2018 10:53 AM 4. MG [facility] MM Dig screening mamm BI w/CAD 05/30/2017 2:21 PM FINDINGS: MAMMOGRAPHY: Breast composition: The breasts are almost entirely fatty. Mass: None. Architectural distortion: None. Calcifications: No suspicious calcifications. Asymmetric density: None. Skin thickening: None. Axillary adenopathy: None. IMPRESSION: No mammographic evidence of malignancy. Annual screening is recommended unless otherwise clinically indicated. ASSESSMENT: BI-RADS Category 1: Negative
== END ==
PROVIDERS: PCP Nurse Practitioner Family; Visit Provider Obstetrics & Gynecology
DX: Z12.31 Encounter for screening mammogram for malignant neoplasm of breast (principal)
CPT/HCPCS: 77063; 77067

== ENCOUNTER → 2021-11-22 13:41 | Outpatient (POV) | payer OTHER, SELFPAY | PROVIDERS: Visit Provider Dermatology | DX: Z00.00 Encounter for general adult medical examination without abnormal findings (principal) ==

== ENCOUNTER → 2022-06-20 08:52 | Outpatient (POV) | payer OTHER, SELFPAY | PROVIDERS: Visit Provider Dermatology | DX: Z00.00 Encounter for general adult medical examination without abnormal findings (principal) ==

== ENCOUNTER 2022-10-12 11:00 | Outpatient (RCR) | payer OTHER, SELFPAY ==
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
--- NOTE | 2022-07-13 09:07 | HMH.RHREAS ---
Rehab Reassessment Rehab OP Re-assessment Start: 07/13/22 07:51 Freq: Status: Active Protocol: Document 07/13/22 07:51 NEEL (Rec: 07/13/22 09:07 NEEL [id number]) E-signed By Macario Yao, PT Rehab Re-assessment Subjective Subjective Pt reports 3-4/10 neck pain on VAS over the last couple weeks on average, and feels 60 % better overall since I eval Objective Objective Notes CROM: FLX 0-45, EXT 0-25, B/L SB 0-30, B/L ROT 0-60 MMT: B/L SH FLX AND ABD 4/5, B /L FINGER ABD 4/5, B/L ELBOW FLX,EXT 4+/5 TTP: B/L UT MM 2-3/4, B/L CERVICAL PARASPINALS 2-3/4, B/ L SUBOCCIPITAL 2/4 Assessment Progress Assessment Progressing as Expected Assessment Notes IMPROVED CROM AND STRENGTH Patient goals met STG'S 09/02 LTG'S 06/04 Goals Not Met STG'S 03/05, LTG'S 07/04 Plan Plan Pt to continue w/skilled P.T. to make further improvements in ROM, strength, and TTP to allow for optimal function Frequency of Therapy 1-2x/wk Duration of therapy 3-5wks Time and Billing Re-Eval Time 11 Re-Eval Billing Units 1 PHYSICIAN CERTIFICATION: I certify the specified therapy services for Susan Rivers are required, authorized, and reviewed every 30 days.
--- NOTE | 2022-08-15 11:31 | HMH.RHREAS ---
Rehab Reassessment Rehab OP Re-assessment Start: 07/13/22 07:51 Freq: Status: Active Protocol: Document 08/15/22 11:26 NEEL (Rec: 08/15/22 11:31 NEEL [id number]) E-signed By Macario Yao, PT Rehab Re-assessment Subjective Subjective Pt reports increased neck pain and referred pain in left UE and cervico-suboccipital area as well. 'I'm just really feeling like it's back to where it was, and I'm afraid it's something I'm gonna have to live with.' Pt reports 5/10 neck pain this am on VAS Objective Objective Notes CROM: FLX 0-40, EXT 0-10, B/L SB 0-30, B/L ROT 0-45 MMT: B/L SH FLX AND ABD 4/5, B /L FINGER ABD 4/5, B/L ELBOW FLX,EXT 4+/5 TTP: B/L UT MM 3-4/4, B/L CERVICAL PARASPINALS 3-4/4, B/ L SUBOCCIPITAL 3-4/4 Assessment Progress Assessment Slower Than Expected Assessment Notes regressions in TTP and ROM Patient goals met STG'S 09/02 LTG'S 06/04 Goals Not Met STG'S 03/05, LTG'S 07/04 Plan Plan Pt to continue w/skilled P.T. to make further improvements in ROM, strength, and TTP to allow for optimal function. Pt also advised to seek follow- up with referring provider in an attempt to obtain new cervical spine MRI, and possible referral to neurosx. Frequency of Therapy 1-2x/wk Duration of therapy 3-4wks Time and Billing Re-Eval Time 12 Re-Eval Billing Units 1 PHYSICIAN CERTIFICATION: I certify the specified therapy services for Susan Rivers are required, authorized, and reviewed every 30 days.
--- NOTE | 2022-09-14 15:38 | HMH.RHREAS ---
Rehab Reassessment Rehab OP Re-assessment Start: 07/13/22 07:51 Freq: Status: Active Protocol: Document 09/14/22 15:30 [email or web address] (Rec: 09/14/22 15:38 PHORNE [id number]) E-signed By Paul Pisano, PT Rehab Re-assessment Subjective Subjective Pt reports, My left hand still goes numb when I'm driving and it wakes me up being really numb at night sometimes. I'm starting to hurt a lot more on my right shoulder and up into my neck and I don't know why. Continued pain this am 4/10 on VAS in the neck, at worst 9/ 10 in the afternoon to evening . She continues to wait for follow-up with MD for possibility of new MRI. Objective Objective Notes CROM (in deg): FLX 0-45, EXT 0 -20, R SB 0-30, L SB 0-15,R ROT 0-35, L ROT 0-45 MMT: B/L SH FLX AND ABD 4/5, B /L FINGER ABD 4/5, B/L ELBOW FLX,EXT 4+/5 TTP: B/L UT MM 3/4, B/L CERVICAL PARASPINALS 3/4, B/L SUBOCCIPITAL 3/4 Assessment Progress Assessment Slower Than Expected Assessment Notes Pt continues to show limited improvements in cervical AROM which limtis all activity, especially driving and work activities. Her L side bending and extension ROM appears to be most effected this date. Her pain remains increased, especially later in the day. She appears to be showing increased overuse of the R UE due to continued L UE weakness and parasthesia. She continues to need skilled intervention to return to prior level of function. Patient goals met STG'S 09/02 LTG'S 06/04 Goals Not Met STG'S 03/05, LTG'S 07/04 Plan Plan Pt to continue w/skilled P.T. to make further improvements in ROM, strength, and TTP to
== END 2022-10-12 11:05 | disposition home or self-care (01) ==
LOC: PT 11:00
PROVIDERS: PCP Nurse Practitioner Family; Visit Provider Nurse Practitioner Family
DX: M54.2 Cervicalgia (principal); R20.2 Paresthesia of skin; G89.29 Other chronic pain
CPT/HCPCS: 97010; 97012; 97014; 97035; 97110; 97140; 97163; 97164; G0283

== ENCOUNTER → 2022-10-26 11:00 | Outpatient (POV) | payer OTHER, SELFPAY ==
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
[2022-10-26 12:33] VITALS: BP 132/82; PULSE 69; RESP 18; O2SAT 99; BMI 24.0
== END ==
PROVIDERS: PCP Nurse Practitioner Family; Visit Provider Nurse Practitioner Family
DX: M50.10 Cervical disc disorder with radiculopathy, unspecified cervical region (principal)
CPT/HCPCS: 99202; G0463

== ENCOUNTER → 2022-11-14 12:58 | Outpatient (CLI) | payer OTHER, SELFPAY ==
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
== END ==
PROVIDERS: PCP Nurse Practitioner Family; Visit Provider Nurse Practitioner Family
DX: M54.2 Cervicalgia (principal)
CPT/HCPCS: 72050

== ENCOUNTER → 2022-11-23 10:46 | Outpatient (POV) | payer OTHER, SELFPAY ==
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
[2022-11-23 11:24] VITALS: BP 116/67; PULSE 77; RESP 18; O2SAT 98; BMI 23.3
== END ==
PROVIDERS: PCP Nurse Practitioner Family; Visit Provider Nurse Practitioner Family
DX: M50.10 Cervical disc disorder with radiculopathy, unspecified cervical region (principal); G89.29 Other chronic pain
CPT/HCPCS: 99212; G0463

== ENCOUNTER → 2022-12-19 10:56 | Outpatient (CLI) | payer OTHER, SELFPAY ==
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
== END ==
LOC: RAD 10:56
PROVIDERS: PCP Nurse Practitioner Family; Visit Provider Nurse Practitioner Family
DX: M54.2 Cervicalgia (principal)
CPT/HCPCS: 72141; 76376

== ENCOUNTER 2022-12-19 12:54 | Emergency (ER) | payer OTHER, SELFPAY ==
--- NOTE | 2022-12-19 13:04 | ECG_ITS ---
APPROVED REPORT Exam: Resting ECG HR:79 bpm ECG Measurements Heart Rate 79 AXES ND 139 P 53 QRSd 82 QRS 35 QT 397 T 36 QTc 431 Conclusion SINUS RHYTHM WITH SINUS ARRHYTHMIA LOW QRS VOLTAGE IN PRECORDIAL LEADS [QRS DEFLECTION < 1.0 mV IN CHEST LEADS] BORDERLINE ECG UNCONFIRMED REPORT Electronically signed by : Jan Gillette MD 12/21/2022 21:31:55
[2022-12-19 13:17] VITALS: BP 154/90; PULSE 83; RESP 19; TEMP 36.8; O2SAT 97; BMI 27.4
[2022-12-19 13:30] VITALS: BP 156/66; PULSE 84; O2SAT 98
--- NOTE | 2022-12-19 13:34 | HMH.EDGENADL ---
Discharge Plan Disposition Patient Disposition: Home, Self-Care Condition: Good Prescriptions Prescriptions: New diazepam [Valium] 2 mg tablet 2 mg PO QID PRN (Reason: vertigo) 3 Days Qty: 12 0RF ondansetron HCl 4 mg tablet 4 mg PO Q8H PRN (Reason: nausea and vomiting) 5 Days Qty: 30 0RF No Action buspirone 5 mg tablet 5 mg PO DAILY omeprazole 20 mg capsule,delayed release(DR/EC) 20 mg PO DAILY multivitamin 1 EACH tablet 1 each PO DAILY Referrals Follow up/Referrals: Provider,Referral, MD [Referring] - See instructions Activity Restrictions/Add. Instructions Additional Instructions/Restrictions: Please take Zofran as needed for nausea and vomiting. Please take Valium as needed for vertigo. Please follow-up with your PCP and with ENT. You may need an MRI to further evaluate. You may benefit from vestibular rehab. Clinical Impressions Clinical Impression: Positional vertigo Discharge ED Provider: Dallin Penaloza Adult HPI General Chief complaint: Dizziness Stated complaint: dizziness Time Seen by Provider: 12/19/22 13:03 Mode of Arrival: Wheelchair Source of Information: Patient Limitations: No Limitations Description of Symptoms (Recalled from ER Triage Doc. by RN): pt to ed via wheelchair from MRI. pt states she became dizzy while transferring from the MRI table. pt reports a hx of vertigo. rehab staff member states pt has a hx of dizzy spells while participating in PT. pt denies complaints of pain. History of Present Illness HPI narrative: 67-year-old female, reported history of intermittent vertigo for the last 10 years, presents with acute onset vertigo after sitting up after finishing noncontrast MRI of the cervical spine for chronic neck pain. She reports vertigo is worse with movement. She reports a spinning sensation. She reports that she has had tensive work-up with multiple providers to understand the etiology of her vertigo no one has been able to provide her with a satisfactory answer. She has been alternatively told it is M?ni?re's, BPPV, possibly related to previous head trauma, etc. she reports that she did previously take meclizine, but no longer takes it because she is exquisitely sensitive to medications and becomes very sleepy with any medications. She reports that she feels weird , but is unable to further characterize her symptoms. Per MRI staff/people who were not there at the time, they report that she had no focal weakness, no dysarthria, no facial droop. Currently denies any change in sensation, any weakness, headache, chest pain, abd pain, sob. Related Data Home Medications Medication Instructions Recorded Confirmed multivitamin 1 each PO DAILY Supplement 08/03/20 11/23/22 omeprazole 20 mg capsule,delayed 20 mg PO DAILY STOMACH 09/06/20 11/23/22 release buspirone 5 mg tablet 5 mg PO DAILY MOOD 07/04/22 11/23/22 Previous Rx's Medication Instructions Recorded diazepam 2 mg tablet (Valium) 2 mg PO QID PRN vertigo 3 days #12 12/19/22 tabs ondansetron HCl 4 mg tablet 4 mg PO Q8H PRN nausea and 12/19/22 vomiting 5 days #30 tabs Allergies Allergy/AdvReac Type Severity Reaction Status Date / Time Penicillins AdvReac Mild NA-NAUSEA Verified 07/04/22 11:37 Sulfa (Sulfonamide AdvReac Mild NA-NAUSEA Verified 07/04/22 11:37 Antibiotics) [facility] Disclaimer: The information contained in this section may have been updated after the patient was seen, as this information can be updated by other users. Medical History (Updated 12/19/22 @ 15:21 by Dallin Penaloza MD) Hx of blood clots Hx of skin cancer, basal cell Hx pulmonary embolism MONICA (obstructive sleep apnea) Surgical History Hx of section Hx of colonoscopy Family History Other Cancer Diabetes Heart attack Social History (Updated 10/26
[2022-12-19 13:36] LABS: Basophils % 0.6 % (0.1-2.0); Eosinophils # 0.1 K/mm3 (0.0-0.4); Eosinophils % 1.1 % (0.1-12.0); Hemoglobin 14.3 g/dL (12.2-16.2); Lymphocytes # 2.9 K/mm3 (0.7-4.5); Lymphocytes % 47.8 % (10-50); Mean Corpuscular HGB Conc 35.7 g/dL (31.8-35.4); Mean Corpuscular Hemoglobin 31.8 pg (27.0-31.2); Mean Corpuscular Volume 89.3 fl (81-99); Mean Platelet Volume 8.4 fl (7.4-10.4); Monocytes # 0.3 K/mm3 (0.1-1.0); Monocytes % 4.8 % (1.7-9.3); Neutrophils # 2.7 K/mm3 (1.8-7.8); Neutrophils % 45.7 % (37.0-80.0); Platelet Count 227 K/mm3 (142-424); Red Blood Count 4.48 M/mm3 (4.20-5.40); Red Cell Distribution Width 13.2 % (11.5-17.5)
[2022-12-19 13:37] LABS: Chloride 103 mmol/L (98-107); Potassium 3.6 mmoL/L (3.5-5.1); Sodium 139 mmol/L (136-145)
[2022-12-19 13:39] LABS: Blood Urea Nitrogen 11 mg/dl (7-17); Creatinine Clearance Estimated 93 mL/min (50-200); Estimated Glomerular Filt Rate 86 ml/min (>60); GFR (African American) 104 ML/MIN (>60)
[2022-12-19 13:40] LABS: Alanine Aminotransferase 24 U/L (12-78); Albumin Level 4.8 g/dl (3.5-5.0); Albumin/Globulin Ratio 1.4 (1.1-1.8); Alkaline Phosphatase 95 U/L (38-126); Anion Gap 9.6 mEq/L (5-15); Aspartate Amino Transferase 36 U/L (14-36); Bilirubin,Total 0.5 mg/dl (0.2-1.3); Calcium 9.5 mg/dl (8.4-10.2); Carbon Dioxide 30 mmol/L (22.0-30.0); Globulin 3.4 g/dL (1.3-3.2); Glucose 113 mg/dl (74-100); Total Protein,Serum 8.2 g/dl (6.3-8.2)
[2022-12-19 13:41] LABS: Magnesium 2.1 mg/dl (1.6-2.3)
[2022-12-19 13:53] LABS: Troponin I < 0.01 ng/ml (0.00-0.034)
[2022-12-19 14:00] VITALS: BP 142/86; PULSE 72; RESP 14; O2SAT 98
[2022-12-19 14:11] LABS: Thyroid Stimulating Hormone 2.57 uIU/mL (0.465-4.68)
[2022-12-19 14:31] VITALS: BP 122/64; PULSE 76; RESP 16; O2SAT 98
[2022-12-19 15:00] VITALS: BP 147/85; PULSE 79; RESP 15; O2SAT 98
[2022-12-19 15:42] VITALS: BP 157/91; PULSE 82; RESP 19; TEMP 36.8; O2SAT 97
== END 2022-12-19 15:43 | disposition home or self-care (01) ==
PROVIDERS: Emergency Provider Emergency Medicine; PCP Nurse Practitioner Family
DX: H81.10 Benign paroxysmal vertigo, unspecified ear; I49.9 Cardiac arrhythmia, unspecified; G47.33 Obstructive sleep apnea (adult) (pediatric)
CPT/HCPCS: 80053; 83735; 84443; 84484; 85025; 93005; 96360; 99284

== ENCOUNTER → 2023-01-04 08:57 | Outpatient (CLI) | payer OTHER, SELFPAY ==
[2023-01-04 10:28] LABS: Basophils % 0.8 % (0.1-2.0); Eosinophils # 0.1 K/mm3 (0.0-0.4); Eosinophils % 1.2 % (0.1-12.0); Hematocrit 38.4 % (37.0-47.0); Hemoglobin 13.5 g/dL (12.2-16.2); Lymphocytes # 1.9 K/mm3 (0.7-4.5); Lymphocytes % 43.4 % (10-50); Mean Corpuscular HGB Conc 35.1 g/dL (31.8-35.4); Mean Corpuscular Hemoglobin 31.3 pg (27.0-31.2); Mean Platelet Volume 8.3 fl (7.4-10.4); Monocytes # 0.2 K/mm3 (0.1-1.0); Neutrophils # 2.2 K/mm3 (1.8-7.8); Neutrophils % 49.7 % (37.0-80.0); Platelet Count 196 K/mm3 (142-424); Red Blood Count 4.32 M/mm3 (4.20-5.40); Red Cell Distribution Width 13.1 % (11.5-17.5); White Blood Count 4.4 K/mm3 (4.8-10.8)
[2023-01-04 10:55] LABS: Alanine Aminotransferase 21 U/L (12-78); Albumin Level 4.2 g/dl (3.5-5.0); Albumin/Globulin Ratio 1.5 (1.1-1.8); Anion Gap 13.1 mEq/L (5-15); Aspartate Amino Transferase 30 U/L (14-36); Bilirubin,Total 0.4 mg/dl (0.2-1.3); Blood Urea Nitrogen 8 mg/dl (7-17); Calcium 9.5 mg/dl (8.4-10.2); Carbon Dioxide 30 mmol/L (22.0-30.0); Chloride 103 mmol/L (98-107); Cholesterol 244 mg/dl (140-200); Estimated Glomerular Filt Rate 73 ml/min (>60); GFR (African American) 89 ML/MIN (>60); Globulin 2.8 g/dL (1.3-3.2); Glucose 98 mg/dl (74-100); Potassium 4.1 mmoL/L (3.5-5.1); Sodium 142 mmol/L (136-145); Triglycerides 136 mg/dl (30-150); VLDL Cholesterol 27 mg/dL (0-40)
[2023-01-04 10:56] LABS: Alkaline Phosphatase 77 U/L (38-126); Chol/HDL Ratio 4.7 (1-3.5); HDL Cholesterol 52 mg/dl (40-60)
[2023-01-04 11:06] LABS: Direct LDL Cholesterol 125.31 mg/dL (100-129)
[2023-01-04 11:25] LABS: Thyroid Stimulating Hormone 1.76 uIU/mL (0.465-4.68)
[2023-01-04 11:44] LABS: Vitamin B12 631 pg/mL (239-931)
== END ==
LOC: LAB 08:58
PROVIDERS: PCP Nurse Practitioner Family; Visit Provider Nurse Practitioner Family
DX: R42 Dizziness and giddiness (principal); R00.2 Palpitations
CPT/HCPCS: 36415; 80053; 80061; 82607; 83735; 84443; 85025

== ENCOUNTER → 2023-01-10 10:59 | Outpatient (POV) | payer OTHER, SELFPAY ==
[2023-01-10 11:10] VITALS: BP 140/71; PULSE 79; RESP 18; O2SAT 99; BMI 23.9
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
== END ==
PROVIDERS: PCP Nurse Practitioner Family; Visit Provider Nurse Practitioner Family
DX: M50.10 Cervical disc disorder with radiculopathy, unspecified cervical region (principal)
CPT/HCPCS: 99212; G0463

== ENCOUNTER → 2023-01-31 10:28 | Outpatient (CLI) | payer OTHER, SELFPAY ==
--- NOTE | 2023-01-31 10:34 | US_ITS ---
PROCEDURE: US TRANSVAGINAL CLINICAL INDICATION: pelvic pain COMPARISON: No exams were available for comparison FINDINGS: Transvaginal and transabdominal sonographic images of the pelvis were obtained. UTERUS: 7.8 cm x 2.3 cmx 3.1 cm with a combined endometrial thickness of 3.7mm. LEFT OVARY: 1.6 cmx1.2 cmx0.6cm with a volume of 0.6ml. RIGHT OVARY: 2.1cmx 1.5cmx1.4 cm with a volume of 2.3ml. Both ovaries are seen and appear normal. Doppler flow to both ovaries are seen. There is no fluid in the cul-de-sac. IMPRESSION: 1. Postmenopausal uterus normal in shape and size. The endometrium is thin. 2. Both ovaries are seen and appear atrophic. 3. No fluid in the cul-de-sac. Dictated by: Partha Agarwal MD 01/31/2023 17:23 Partha Agarwal MD in [facility] 01/31/2023 17:23
--- NOTE | 2023-01-31 10:34 | MM_ITS ---
PROCEDURE INFORMATION: Exam: MG Bilateral Screening 3D Mammography Exam date and time: 01/31/2023 10:53 AM Age: 57 years old Clinical indication: Screening examination; Additional info: Screening xmg TECHNIQUE: Imaging protocol: Bilateral Screening tomosynthesis and 2D mammography including computer-aided detection (CAD) when performed. COMPARISON: 1. MG MM DIG SCREENING MAMM BI W/CAD 11/22/2021 11:01 AM 2. MG MM DIG SCREENING MAMM BI W/CAD 11/17/2020 1:31 PM FINDINGS: MAMMOGRAPHY: Breast composition: There are scattered areas of fibroglandular density. Mass: None. Architectural distortion: None. Calcifications: No suspicious calcifications. Asymmetric density: None. Skin thickening: None. Axillary adenopathy: None. IMPRESSION: No mammographic evidence of malignancy. Annual screening is recommended unless otherwise clinically indicated. ASSESSMENT: BI-RADS Category 1: Negative
== END ==
LOC: RAD 10:30
PROVIDERS: PCP Nurse Practitioner Family; Visit Provider Obstetrics & Gynecology
DX: Z12.31 Encounter for screening mammogram for malignant neoplasm of breast (principal); R10.2 Pelvic and perineal pain
CPT/HCPCS: 76830; 77063; 77067

== ENCOUNTER → 2023-02-05 11:12 | Outpatient (POV) | payer OTHER, SELFPAY ==
--- NOTE | 2023-02-05 12:04 | EXP.PAIN.SOA ---
[facility] Pain Management SOAP Note Subjective:: Patient is a pleasant 57-year-old female who presents today for follow-up. We are currently treating the patient for degenerative disc disease of cervical spine with cervical radiculopathy symptoms. Today she rates her pain a 3 out of 10. Patient denies any new trauma or injury. She does state that overall today is a good day. Patient does state though that she is still been experiencing severe episodes of vertigo and that her family doctor has ordered a MRI that is scheduled for the this . Patient states that they are waiting to see the results before deciding to proceed forward to send her to a specialist. Patient has been to at least 2 different ENT providers in the past with no acute findings for her vertigo. This has been going on since 2010. Patient states that it is no worse than what it had been prior. She states that certain days are really bad however others are more tolerable. Patient states that the compounding cream we prescribed her does typically set her on fire however she will still use this when her pain is really bad in her neck. Patient does state that she uses Aspercreme on a regular basis. Patient has been discussed with regarding possible cervical epidurals at previous visits however she states that she does not typically care for needles and worries that she will make her symptoms worse. 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 Patient also states that she is unable to tolerate NSAIDs. Her Andreas has been reviewed and is appropriate. Review of Systems: General: No recent weight changes, no fever, no sleep disturbances Respiratory: No cough, no shortness of air, no recurring pulmonary infections Cardiovascular/peripheral vascular: No chest pain, no palpitations, no edema, no shortness of breath Gastrointestinal: No new onset incontinence, normal bowel movements reported Genitourinary: No new onset incontinence Musculoskeletal: Neck pain, right arm pain/numbness Psychiatric: [Normal mood/affect] Neurological: [Denies weakness in extremities], [denies balance issues] Objective:: Physical Exam: General: Alert and oriented x3, no acute distress, pleasant and cooperative Lungs: Respirations even and unlabored, symmetrical chest expansion Eyes: PERRL Musculoskeletal: Flexion and extension of cervical [spine] somewhat guarded secondary to pain, [antalgic gait noted] Neurological: Speech clear, no gross sensory deficit Assessment:: Degenerative disc disease of cervical spine with cervical radiculopathy symptoms Plan:: Patient continues to experience significant pain in her neck and radiating symptoms to her right arm and right hand. I have discussed with the patient that I do believe that she would benefit from a cervical epidural however patient is unsure on this option. I did review over the risk and benefits and counseled her that she can call our office if she decides at a later date that she would like to get scheduled for this injection. I have recommended the patient try Tylenol arthritis and see if this helps with any of her symptoms along with heat and ice. Patient will return to clinic in 2 months for reevaluation of symptoms and plan of care. Patient has been instructed to contact the clinic with any concerns before the next appointment. Dr. Be has reviewed this note and agrees with this plan of care. This note was dictated using voice recognition software and make contain errors or omissions. [facility] Disclaimer: The information contained in this section may have been updated after the patient was seen, as this information can be updated by other users. Medical History Chronic LLQ pain Family history of breast cancer Family history of ovarian cancer Hx of blood clots Hx of skin cancer, basal jose
[2023-02-05 12:14] VITALS: BP 128/77; PULSE 79; RESP 18; O2SAT 99; BMI 23.7
== END ==
PROVIDERS: PCP Nurse Practitioner Family; Visit Provider Nurse Practitioner Family
DX: M50.10 Cervical disc disorder with radiculopathy, unspecified cervical region (principal)
CPT/HCPCS: 99212; G0463

== ENCOUNTER → 2023-02-15 11:47 | Outpatient (CLI) | payer OTHER, SELFPAY ==
--- NOTE | 2023-02-15 12:06 | MR_ITS ---
FINAL REPORT CLINICAL HISTORY: RECURRENT VERTIGO COMPARISON: None FINDINGS: Multiplanar MR imaging of the brain was performed without and with contrast. Foci of increased signal in the deep nerve, most evident in the left frontal region. There is no evidence of intracranial hemorrhage or mass. No abnormal extra-axial fluid collection is seen. The ventricular size is within normal limits. There is no evidence of shift of the midline structures. The posterior fossa and brainstem have an unremarkable appearance. No area of abnormal restricted diffusion is identified. No abnormal contrast enhancement is seen. Normal major vessel vascular flow voids are noted. IMPRESSION: A few small foci of increased signal are present in the deep white matter, most evident in the left frontal region, consistent with mild changes of chronic ischemic/gliotic microvascular disease. No restricted diffusion is present to suggest an acute ischemic event. Reviewed, Interpreted and Dictated by Cecil Tuttle MD Transcribed by Jesi Champagne Authenticated and [facility]
[2023-02-15 12:11] LABS: Blood Urea Nitrogen 9 mg/dl (7-17); Estimated Glomerular Filt Rate 85 ml/min (>60); GFR (African American) 103 ML/MIN (>60)
== END ==
LOC: RAD 11:48
PROVIDERS: PCP Nurse Practitioner Family; Visit Provider Nurse Practitioner Family
DX: R42 Dizziness and giddiness (principal)
CPT/HCPCS: 36415; 70553; 82565; 84520; A9576

== ENCOUNTER 2023-06-19 09:53 | Outpatient (POV) | payer OTHER, SELFPAY | END 2023-06-19 23:59 | disposition home or self-care (01) | LOC: SC 09:53 | PROVIDERS: PCP Nurse Practitioner Family; Visit Provider Dermatology | DX: Z00.00 Encounter for general adult medical examination without abnormal findings (principal) ==

== ENCOUNTER 2023-08-15 12:17 | Outpatient (CLI) | payer OTHER, SELFPAY ==
--- NOTE | 2023-08-15 12:21 | XR_ITS ---
FINAL REPORT CLINICAL HISTORY: Nonspecific cough COMPARISON: 04/30/2020 FINDINGS: No acute pulmonary density is evident. There is no evidence of effusion or other pleural disease. The mediastinum has a normal appearance. The cardiac silhouette is unremarkable. IMPRESSION: Unremarkable chest exam. Reviewed, Interpreted and Dictated by Sigifredo Sutton MD Transcribed by Kathia Thomas Authenticated and [facility]
== END 2023-08-15 23:59 | disposition home or self-care (01) ==
LOC: RAD 12:18
PROVIDERS: PCP Nurse Practitioner Family; Visit Provider Nurse Practitioner Family
DX: R05.3 Chronic cough (principal)
CPT/HCPCS: 71046

== ENCOUNTER 2023-09-25 11:58 | Outpatient (POV) | payer OTHER, SELFPAY | END 2023-09-25 23:59 | disposition home or self-care (01) | LOC: SC 11:59 | PROVIDERS: PCP Nurse Practitioner Family; Visit Provider Dermatology | DX: Z00.00 Encounter for general adult medical examination without abnormal findings (principal) ==

== ENCOUNTER 2024-06-12 12:56 | Outpatient (CLI) | payer OTHER, SELFPAY ==
--- NOTE | 2024-06-12 13:02 | MM_ITS ---
PROCEDURE INFORMATION: Exam: MG Bilateral Screening 3D Mammography Exam date and time: 06/12/2024 1:08 PM Age: 59 years old Clinical indication: Screening examination TECHNIQUE: Imaging protocol: Bilateral Screening tomosynthesis and 2D mammography including computer-aided detection (CAD) when performed. COMPARISON: 1. MG MM DIG SCREENING MAMM BI W/CAD 01/31/2023 10:53 AM 2. MG MM DIG SCREENING MAMM BI W/CAD 11/22/2021 11:01 AM FINDINGS: MAMMOGRAPHY: Breast composition: The breasts are almost entirely fatty. Mass: None. Architectural distortion: None. Calcifications: No suspicious calcifications. Asymmetric density: None. Skin thickening: None. Axillary adenopathy: None. IMPRESSION: No mammographic evidence of malignancy. Annual screening is recommended unless otherwise clinically indicated. ASSESSMENT: BI-RADS Category 1: Negative.
== END 2024-06-12 23:59 | disposition home or self-care (01) ==
LOC: RAD 12:59
PROVIDERS: PCP Nurse Practitioner Family; Visit Provider Obstetrics & Gynecology
DX: Z12.31 Encounter for screening mammogram for malignant neoplasm of breast (principal)
CPT/HCPCS: 77063; 77067

== ENCOUNTER 2024-07-07 12:39 | Outpatient (CLI) | payer OTHER, SELFPAY ==
--- NOTE | 2024-07-07 13:00 | US_ITS ---
PROCEDURE: US TRANSVAGINAL CLINICAL INDICATION: LLQ pain, abdominal bloating, check ovaries COMPARISON: US US TRANSVAGINAL from 01/31/2023 FINDINGS: Transvaginal and transabdominal sonographic images of the pelvis were obtained. UTERUS: 8.1cm x 3.5cmx 2.1cm retroverted and axial with a combined endometrial thickness of 4.7mm. LEFT OVARY: 2.4cmx1.8 cmx1.4cm with a volume of 3.3ml. Left ovary is seen trans abdominally RIGHT OVARY: Not visualized Left ovary is seen and appears normal. Doppler flow to left ovary is seen. There is no fluid in the cul-de-sac. IMPRESSION: 1. Retroverted and axial uterus normal in shape and size. The endometrium is thin. 2. Difficult examination due to axial nature of the uterus. 3. Left ovary is seen transabdominally and appears normal and atrophic. Right ovary is not seen. 4. No fluid in the cul-de-sac. Dictated by: Partha Agarwal MD 07/07/2024 13:54 Partha Agarwal MD in [facility] 07/07/2024 13:54
== END 2024-07-07 23:59 | disposition home or self-care (01) ==
LOC: RAD 12:41
PROVIDERS: PCP Nurse Practitioner Family; Visit Provider Obstetrics & Gynecology
DX: R10.32 Left lower quadrant pain (principal); R14.0 Abdominal distension (gaseous); G89.29 Other chronic pain; N85.4 Malposition of uterus; Z80.41 Family history of malignant neoplasm of ovary
CPT/HCPCS: 76830